=== PATIENT | male | born 1985 | race Two or more races ===

== ENCOUNTER 2022-09-13 19:36 | Emergency (ER) | payer OTHER ==
[~2022-09-13] VITALS: Ht 167.6 cm; Wt 79.0 kg
[2022-09-13] MEDS ORDERED: HYDROCODONE/ACETAMINOPHEN 5-325 MG TABLET PO ONE (20:30)
[2022-09-13 23:03] VITALS: BP 127/70; PULSE 74; RESP 16; TEMP 98.3
== END 2022-09-13 23:29 | disposition home or self-care (01) ==
LOC: EMS 19:36
DX: S82.402A Unspecified fracture of shaft of left fibula, initial encounter for closed fracture (principal); F17.210 Nicotine dependence, cigarettes, uncomplicated; F12.90 Cannabis use, unspecified, uncomplicated; X50.1XXA Overexertion from prolonged static or awkward postures, initial encounter; Y93.89 Activity, other specified; Y92.89 Other specified places as the place of occurrence of the external cause; Y99.8 Other external cause status
CPT/HCPCS: 99283